=== PATIENT | female | born 1965 | race Caucasian/White ===

== ENCOUNTER → 2022-07-18 09:08 | Outpatient (BNVA) | payer MEDICARE, MEDICAID, SELFPAY | PROVIDERS: Visit Provider Internal Medicine Rheumatology | DX: M15.9 Polyosteoarthritis, unspecified (principal); Z79.899 Other long term (current) drug therapy; Z11.59 Encounter for screening for other viral diseases; M45.6 Ankylosing spondylitis lumbar region; Z71.85 Encounter for immunization safety counseling; Z11.1 Encounter for screening for respiratory tuberculosis; Z84.0 Family history of diseases of the skin and subcutaneous tissue; Z82.61 Family history of arthritis | CPT/HCPCS: 36415; 72100; 72202; 73130; 73630; 80076; 82306; 82565; 85025; 85651; 86140; 86480; 86704; 86803; 86812; 87340; 99204 ==